=== PATIENT | female | born 1995 | race Two or more races ===

== ENCOUNTER 2018-01-03 20:19 | Emergency (ER) | payer MEDICAID ==
[~2018-01-03] VITALS: Ht 157.5 cm; Wt 122.0 kg
[~2018-01-03 20:19] MED LIST: ALB0.5UD IH; CARCD120C PO; CYCL-394 PO; IBUP-1051 PO; NITR100C PO; PRED20TA PO; VAL5T PO
[2018-01-03 20:31] VITALS: BP 146/99
[2018-01-04] MEDS ORDERED: LEVO500T2 PO (01:12)
[2018-01-04] MEDS ORDERED: ALBU8HFA PO (01:12)
[2018-01-04] MEDS ORDERED: ALB0.5UD IH (01:12)
== END 2018-01-04 01:19 | disposition home or self-care (01) ==
LOC: ER 20:20
DX: J20.9 Acute bronchitis, unspecified (principal); J45.909 Unspecified asthma, uncomplicated; I10 Essential (primary) hypertension; Z88.1 Allergy status to other antibiotic agents; Z88.8 Allergy status to other drugs, medicaments and biological substances; Z79.899 Other long term (current) drug therapy; Z56.0 Unemployment, unspecified
CPT/HCPCS: 71045; 99283

== ENCOUNTER 2024-05-19 12:51 | Outpatient (CLI) | payer MEDICAID ==
[~2024-05-19 12:51] MED LIST changes: +DIAZ5TAB22 PO; -VAL5T PO
[2024-05-19] MEDS ORDERED: GADOTERATE MEGLUMINE 7.5 MMOL/15 ML VIAL IV ONE (16:59)
== END 2024-05-19 23:59 | disposition home or self-care (01) ==
LOC: MRI 12:51
PROVIDERS: ATTEND Psychiatry & Neurology Neurology
DX: R20.2 Paresthesia of skin (principal); R53.1 Weakness; R29.6 Repeated falls; R29.2 Abnormal reflex
CPT/HCPCS: 72157; A9575

== ENCOUNTER 2024-05-24 12:33 | Outpatient (CLI) | payer MEDICAID | END 2024-05-24 23:59 | disposition home or self-care (01) | LOC: MRI 12:33 | PROVIDERS: ATTEND Psychiatry & Neurology Neurology | DX: R20.2 Paresthesia of skin (principal); R53.1 Weakness; R29.6 Repeated falls; R29.2 Abnormal reflex | CPT/HCPCS: 72156 ==

== ENCOUNTER 2024-05-26 11:53 | Outpatient (CLI) | payer MEDICAID ==
[~2024-05-26 11:53] MED LIST changes: +GADOTERATE MEGLUMINE 7.5 MMOL/15 ML VIAL IV ONE
== END 2024-05-26 23:59 | disposition home or self-care (01) ==
LOC: MRI 11:53
PROVIDERS: ATTEND Psychiatry & Neurology Neurology
DX: R20.2 Paresthesia of skin (principal); R53.1 Weakness; R29.6 Repeated falls; R29.2 Abnormal reflex
CPT/HCPCS: 70553; A9575

== ENCOUNTER 2025-03-15 22:20 | Emergency (ER) | payer MEDICAID ==
[~2025-03-15] VITALS: Ht 152.4 cm; Wt 88.7 kg
[~2025-03-15 22:20] MED LIST changes: -GADOTERATE MEGLUMINE 7.5 MMOL/15 ML VIAL IV ONE
[2025-03-15 22:32] VITALS: TEMP 98.4
--- NOTE | 2025-03-15 22:49 | Physician Documentation ---
History of Present Illness ~ Chief Complaint: Vaginal Bleeding Stated Complaint: COMPLICATIONS Time Seen by MD: 22:41 Primary Medical Doctor: [facility] HPI 29-year-old female with complaints of excessive vaginal bleeding after D and C today at [facility]. Patient had retained products of conception for a proximally 2-3 weeks prior to D&C. Patient states while she was coming out of anesthesia she was made aware that the D&C was difficult. Patient was educated prior to discharge that there should be minimal bleeding. Since she has been home she has had excessive large clots she states approximately the size of her palm. She has had blood rushing out when sitting on the toilet to use the restroom. She does state that she has been dizzy but that has also been prior to the D&C. Patient sees Dr. Gema MOLINA. Patient called the after hours 2. Discuss concerns of excessive bleeding and was unable to get answers. 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 Patient's last menstrual cycle was in September 2024. Medication Reconciliation Allergies: Coded Allergies: azithromycin (Verified Allergy, Severe, 03/15/25) COMPLAINING OF ITCHY,SCRATCHY THROAT, AND FEELING OF POSSIBLE THROAT CLOSING amoxicillin (Verified Allergy, Intermediate, HIVES, 03/15/25) clavulanic acid (Verified Allergy, Intermediate, HIVES, 03/15/25) doxycycline (Verified Allergy, Intermediate, SOB, HEADACHE, 03/15/25) oseltamivir (Unverified Allergy, Intermediate, 03/15/25) avocado (Verified Adverse Reaction, Mild, 03/15/25) ITCHY THROAT Uncoded Allergies: ONION (Adverse Reaction, Mild, 12/19/12) ITCHY THROAT Scheduled Albuterol Sulfate Nebs* (Proventil Nebs*), 2.5 MG IH Q6H Cyclobenzaprine HCl (Cyclobenzaprine HCl), 10 MG PO BID Diazepam* (Valium*), 10 MG PO BID Diltiazem Hcl CD* (Cardizem CD*), 120 MG PO DAILY Ibuprofen* (Motrin*), 800 MG PO BID Nitrofurantoin Macrocrystal (Nitrofurantoin), 1 CAP PO BID Prednisone* (Prednisone*), 2 TAB PO DAILY Scheduled PRN Albuterol Sulfate Nebs* (Proventil Nebs*), 2.5 MG IH Q6H PRN Past Medical History Past Medical History: No Pertinent History, Hypertension, Asthma, Pneumonia Past Surgical History: other (D&C Today) Alcohol Use: None Drug Use: none Lives with: Spouse Occupation: unemployed Review of Systems All Other Systems at this time: Reviewed and Negative Female Genitalia: Reports: see HPI Physical Exam Vital Signs: Temperature: 98.4, Source: Oral, Heart Rate: 96, Respiratory Rate: 16, BP: 157/101, Pulse Oximetry: 100, Weight: 88.700 Oxygen Flow Rate: 0 General Appearance: alert, WD/WN, no apparent distress Respiratory: no respiratory distress External Genitalia: normal Vagina: normal Cervix: blood present, os open, tender Uterus: abnormal size, tender Adnexa: tender Progress Results/Orders Results/Orders Completed Orders - NITO AMADO MD Cbc/Diff (03/16/25 00:53) BMP (03/16/25 00:53) Medications Received in ER Medications (Trade) Dose Ordered Sig/Ronak Route PRN Reason Start Time Stop Time Status Last Admin Dose Admin Sodium Chloride 1,000 ml @ 1,000 mls/hr ONCE ONCE IV 03/15/25 22:40 03/15/25 23:39 DC 03/16/25 00:02 1,000 MLS/HR (Zofran 4mg/2ml vial) 4 mg ONCE ONCE IV 03/15/25 22:40 03/15/25 22:41 DC 03/16/25 00:02 4 MG Vital Signs 03/15/25 03/15/25 03/15/25 22:32 23:26 23:39 Temp 98.4 Pulse 96 89 Resp 16 18 15 B/P (MAP) 157/101 133/89 (104) Pulse Ox 100 99 O2 Flow Rate 0 Laboratory Tests Test 03/15/25 22:56 03/16/25 01:15 White Blood Count 10.7 9.3 Red Blood Count 4.20 3.76 L Hemoglobin 11.8 L 10.7 L Hematocrit 36.1 32.2 L Mean Corpuscular Volume 85.8 85.6 Mean Corpuscular Hemoglobin 28.1 28.4 Mean Corpuscular Hemoglobin Concent 32.7 L 33.2 Red Cell Distribution Width 14.9 H 15.1 H Platelet Count 325 289 Mean Platelet Volume 7.7 7.5 Neutrophils (%) (Auto) 95.0 H 93.9 H Lymphocytes (%) (Auto) 4.1 L 4.9 L Monocytes (%) (Auto) 0.8 L 1.0 L Eosinophils (%) (Auto) 0 0 Basophils (%) (Auto) 0.1 0.2 Neutrophils # (Auto) 10.1 H 8.7 H Lymphocytes # (Auto) 0.4 L 0.5 L Monocytes # (Auto) 0.1 0.1 Eosinophils # (Auto) 0.0 0.0 Basophils # (Auto) 0.0 0.0 CBC Comment Sodium Level 138 134 L Potassium Level 4.1 4.3 Chloride Level 103 104 Carbon Dioxide Level 21.2 L 24.0 Anion Gap 14 6 L Blood Urea Nitrogen 13 12 Creatinine 0.70 0.50 Estimated GFR/1.73 m2 > 90 > 90 BUN/Creatinine Ratio 18.6 24.0 H Glucose Level 194 H 156 H Calcium Level 9.0 8.5 Total Bilirubin 0.3 Aspartate Amino Transf (AST/SGOT) 21 Alanine Aminotransferase (ALT/SGPT) 22 Alkaline Phosphatase 87 Total Protein 7.1 Albumin 3.2 L 2.9 L Globulin 3.9 Albumin/Globulin Ratio 0.8 L Chemistry Comments Medical Decision Making Findings Differentials include hemorrhage, perforated uterus from D and C, missed products of conception an ultrasound has been ordered to evaluate as well as CT abdomen and pelvis for potential perforation. Patient's vital signs are reassuring. Dr. Amado taking over case: Followed up imaging and repeat hemoglobin. Discussed results with Dr. Gema MOLINA. Specifically went over both CT and ultrasound reads as well as hemoglobin. Also in over patient's vitals as well as her re-evaluations with her sitting up in bed smiling with significantly decreased blood per vagina. We feel she is safe for discharge at this time and imaging that has reported to be what would be expected from a fairly invasive D and C per Dr. Gema MOLINA. Patient feels comfortable with discharge with ER precautions. Patient's hemoglobin did decrease however we did give her IV fluids. Departure Disposition: HOME / SELF CARE / HOMELESS Impression: Primary Impression: Vaginal bleeding status post D and C Condition: Improved Discharge Instructions: Abnormal Uterine Bleeding Referrals: NO PRIMARY CARE PROVIDER (PCP) Education Educated: Patient Educated regarding: diagnosis, need for follow up Signature Scribe Signature: No scribe Attestation: The note accurately reflects work and decisions made by me.Nito Amado MD 03/16/25 01:47 AMBREEN CUEVAS NP Mar 15, 2025 22:49 NITO AMADO MD Mar 16, 2025 00:58
[2025-03-15 23:05] LABS: BASOPHILS % (AUTO) 0.1 % (0-1); EOSINOPHILS % (AUTO) 0 % (0-6); HEMATOCRIT 36.1 % (35.0-45.0); HEMOGLOBIN 11.8 g/dl (12.0-16.0); LYMPHOCYTES # (AUTO) 0.4 X10'3 (1.1-4.8); LYMPHOCYTES % (AUTO) 4.1 % (21-51); MEAN CORPUSCULAR HEMOGLOBIN 28.1 PG (27.0-31.0); MEAN CORPUSCULAR HGB CONC 32.7 g/dL (33.0-36.5); MEAN CORPUSCULAR VOLUME 85.8 FL (78-98); MEAN PLATELET VOLUME 7.7 FL (7.4-10.4); MONOCYTES # (AUTO) 0.1 X10'3 (0-0.9); MONOCYTES % (AUTO) 0.8 % (2-12); NEUTROPHILS # (AUTO) 10.1 X10'3 (1.8-7.7); PLATELET COUNT 325 X10'3 (140-440); RED CELL DISTRIBUTION WIDTH 14.9 % (11.5-14.5); WHITE BLOOD COUNT 10.7 X10'3 (4.5-11.0)
[2025-03-15] MEDS ORDERED: iohexol 350MG/ML 100ml bottle IV ONE (23:11)
[2025-03-15 23:20] LABS: ALANINE AMINOTRANSFERASE 22 U/L (12-78); ALBUMIN 3.2 G/DL (3.4-5.0); ALBUMIN/GLOBULIN RATIO 0.8 (1.1-1.5); ALKALINE PHOSPHATASE 87 IU/L (46-116); ANION GAP 14 (8-16); ASPARTATE AMINO TRANSFERASE 21 U/L (10-37); BILIRUBIN,TOTAL 0.3 MG/DL (0.1-1.0); BLOOD UREA NITROGEN 13 MG/DL (7-18); BUN/CREATININE RATIO 18.6 (10.0-20.0); CHLORIDE 103 MMOL/L (99-107); GLUCOSE 194 MG/DL (70-104); POTASSIUM 4.1 MMOL/L (3.5-5.1); SODIUM 138 MMOL/L (135-145); TOTAL CARBON DIOXIDE 21.2 MMOL/L (24-32); TOTAL PROTEIN 7.1 G/DL (6.4-8.2); eCRCL 84 ML/MIN; eGFR > 90 ML/MIN
[2025-03-16] MEDS: ondansetron/PF 4mg/2ml inj IV ONE (00:02)
[2025-03-16] MEDS: normal saline 1000ml 1,000 ML IV ONE (00:02)
--- NOTE | 2025-03-16 00:27 | RADIOLOGY REPORT ---
CLINICAL HISTORY: Recent D C excessive vaginal bleeding TECHNIQUE: CT of the abdomen and pelvis was performed with intravenous contrast. 100 mL Omnipaque 350 injected This exam was performed according to our departmental dose optimization program. Up-to-date CT equipment and radiation dose reduction techniques are utilized as appropriate. CTDIVol: 23.27+ 31.15 mGy DLP: 1703.71 mGy-cm WID: COMPARISON: None FINDINGS: Lower Thorax: Unremarkable. Liver and Biliary system: Prior cholecystectomy, otherwise unremarkable. Spleen: Unremarkable. Adrenal Glands and Kidneys: Unremarkable. Pancreas and Retroperitoneum: Unremarkable. Aorta and Major Vessels: Unremarkable. Bowel, Mesentery and Peritoneal space: Prior sleeve gastrectomy. Normal appendix. Normal caliber sma ll and large bowel. No free air or fluid collection. Pelvis: Enlarged uterus. There is an arterial curvilinear structure within the endometrial cavity (se keira 601, image 45). Of note, there is no early filling of the deep veins in the pelvis. There is a d ermoid cyst in the right ovary measuring 2.8 cm on series 2, image 97. No pelvic lymphadenopathy. Uri nary bladder is minimally distended. Abdominal wall and Osseous Structures: Unremarkable. IMPRESSION: 1. Arterially enhancing curvilinear structure in the endometrial cavity. This could reflect an arteri al extravasation versus an acquired AV fistula from recent DandC. This could be further evaluated wit h a venous phase and delayed scan following the arterial phase. 2. Dermoid cyst in the right ovary.
--- NOTE | 2025-03-16 00:36 | RADIOLOGY REPORT ---
OBSTETRIC ULTRASOUND PRIOR TO 14 WEEKS CLINICAL INDICATION: Recent D and C excessive vaginal bleeding TECHNIQUE: Multiple grayscale ultrasound images were obtained of the pelvis via transabdominal and tr ansvaginal approach for obstetric evaluation. Limited color Doppler and spectral Doppler acquisitions were also obtained. COMPARISON: None FINDINGS: Uterus: 0.4 x 7.1 x 10.9 cm. There are is thickened endometrium measuring 2.7 cm with heterogeneous p ockets of fluid 1 of which demonstrates motion on cine imaging. Right adnexa: right ovary 4 x 3.1 x 2.7 cm. Normal arterial blood flow in the ovary. No right adnexa l mass seen. Known dermoid cyst in the right ovary seen to better advantage on CT from same day Left adnexa: left ovary 2.5 x 1.5 x 2.5 cm. Normal arterial blood flow in the ovary. No left adnexal mass seen. Other: None IMPRESSION: 1. Thickened endometrium with pockets of fluid containing motion which could reflect blood products . 2. Known right ovarian dermoid cyst seen to better advantage on same day CTA abdomen/ pelvis
[2025-03-16 01:25] LABS: BASOPHILS % (AUTO) 0.2 % (0-1); EOSINOPHILS % (AUTO) 0 % (0-6); HEMATOCRIT 32.2 % (35.0-45.0); HEMOGLOBIN 10.7 g/dl (12.0-16.0); LYMPHOCYTES # (AUTO) 0.5 X10'3 (1.1-4.8); LYMPHOCYTES % (AUTO) 4.9 % (21-51); MEAN CORPUSCULAR HEMOGLOBIN 28.4 PG (27.0-31.0); MEAN CORPUSCULAR HGB CONC 33.2 g/dL (33.0-36.5); MEAN CORPUSCULAR VOLUME 85.6 FL (78-98); MEAN PLATELET VOLUME 7.5 FL (7.4-10.4); MONOCYTES # (AUTO) 0.1 X10'3 (0-0.9); NEUTROPHILS # (AUTO) 8.7 X10'3 (1.8-7.7); NEUTROPHILS % (AUTO) 93.9 % (42-75); PLATELET COUNT 289 X10'3 (140-440); RED BLOOD COUNT 3.76 X10'6 (4.20-5.60); RED CELL DISTRIBUTION WIDTH 15.1 % (11.5-14.5); WHITE BLOOD COUNT 9.3 X10'3 (4.5-11.0)
[2025-03-16 01:33] LABS: ALBUMIN 2.9 G/DL (3.4-5.0); ANION GAP 6 (8-16); BLOOD UREA NITROGEN 12 MG/DL (7-18); CALCIUM 8.5 MG/DL (8.5-10.1); CHLORIDE 104 MMOL/L (99-107); GLUCOSE 156 MG/DL (70-104); POTASSIUM 4.3 MMOL/L (3.5-5.1); SODIUM 134 MMOL/L (135-145); eCRCL 118 ML/MIN; eGFR > 90 ML/MIN
[2025-03-16 01:57] VITALS: BP 132/82; PULSE 82; RESP 16; O2SAT 99
== END 2025-03-16 02:03 | disposition home or self-care (01) ==
LOC: ER 22:20
DX: O20.9 Hemorrhage in early pregnancy, unspecified (principal); Z88.0 Allergy status to penicillin; Z88.1 Allergy status to other antibiotic agents; Z88.8 Allergy status to other drugs, medicaments and biological substances; Z3A.14 14 weeks gestation of pregnancy
CPT/HCPCS: 36415; 74174; 76801; 80048; 80053; 85025; 86885; 86900; 86901; 93976; 96361; 96374; 99285; J2405; J7030; Q9967